=== PATIENT | female | born 1990 | race Caucasian/White ===

== ENCOUNTER 2019-03-01 11:56 | Emergency (ER) | payer BC, OTHER ==
[~2019-03-01] VITALS: Ht 162.6 cm; Wt 63.5 kg
--- NOTE | 2019-03-01 12:11 | NUR ---
Dr López at the bedside for MSE.
[2019-03-01] MEDS ORDERED: NEOMY/BACITRA/POLYMYXIN B OINT UD PACKET TP ONE ×2 (12:21→12:30)
[2019-03-01 12:24] VITALS: BP 131/70
[2019-03-01] MEDS ORDERED: LIDOCAINE HCL 2% 20 ML VIAL TP ONE (12:30)
--- NOTE | 2019-03-01 12:35 | NUR ---
Patient discharged to home in stable conditon. Written and verbal after care instructions given. Patient verbalizes understanding of instructions.
== END 2019-03-01 12:36 | disposition home or self-care (01) ==
LOC: ER 11:56
DX: S51.811A Laceration without foreign body of right forearm, initial encounter (principal); W26.8XXA Contact with other sharp object(s), not elsewhere classified, initial encounter; Y93.89 Activity, other specified; Y92.89 Other specified places as the place of occurrence of the external cause; Y99.8 Other external cause status
CPT/HCPCS: A4663

== ENCOUNTER 2019-11-17 16:49 | Emergency (ER) | payer BC, OTHER ==
[~2019-11-17] VITALS: Ht 162.6 cm; Wt 62.6 kg
[2019-11-17] MEDS ORDERED: CEphaleXIN 500 MG CAPSULE PO ONE (17:00)
[2019-11-17] MEDS ORDERED: CEphaleXIN 500 MG CAPSULE ONE (17:05)
[2019-11-17] MEDS ORDERED: LIDOCAINE 1%-EPI 1:100,000 20 ML VIAL TP ONE (17:15)
[2019-11-17] MEDS ORDERED: SULFAMETH/TRIMETH 800/160 MG TABLET PO ONE (17:15)
--- NOTE | 2019-11-17 17:21 | NUR ---
ERMD at bedside performing I&D
[2019-11-17] MEDS ORDERED: SULFAMETH/TRIMETH 800/160 MG TABLET ONE (17:27)
--- NOTE | 2019-11-17 17:33 | NUR ---
Patient discharged to home in stable conditon. Written and verbal after care instructions given. Patient verbalizes understanding of instructions.pt walks in steady gait
== END 2019-11-17 17:35 | disposition home or self-care (01) ==
LOC: ER 16:49
DX: L03.116 Cellulitis of left lower limb (principal); L02.416 Cutaneous abscess of left lower limb
CPT/HCPCS: 10060; 99284; J3490; A4663